=== PATIENT | male | born 1985 | race Two or more races ===

== ENCOUNTER 2017-01-27 21:56 | Emergency (ER) | payer OTHER ==
--- NOTE | ~2017-01-27 | ER ---
PATIENT'S NAME: KEKE [facility] AGE: 31 Y [address] ROOM: [place] [id number] LOCATION: ED ADMIT DATE: 01/27/2017 ER/Outpatient Report DISCHARGE DATE: 01/27/2017 FAMILY PHYSICIAN: PHYSICIAN, NO ATTENDING PHYSICIAN: Tigist Devlin A HISTORY OF PRESENT ILLNESS: A 31-year-old male who presents today with a chief complaint of one day of chest pain. It is in the middle of his chest, it is sharp, it does not radiate anywhere, it does not go to his jaw or back. He does not have any shortness of breath or wheezing, no cough, no fatigue, no pain on inspiration, no fever or chills, no muscle aches. He reports that he has perioral numbness and tingling and he also has bilateral hand tingling and numbness and he feels like his hands are cramping together. He states he has never had anything about this before. He reports his pain is a 6/10, ongoing for a day, denies being anxious. He says he has no stress in his life though. Denies any drug use. PAST MEDICAL HISTORY: None. PAST SURGICAL HISTORY: Some sort of nose surgery and hernia repair. SOCIAL HISTORY: He smokes half-a-pack per day for the last 17 years. Drinks alcohol occasionally. Denies any drug use. MEDICATIONS: None. ALLERGIES: NONE. REVIEW OF SYSTEMS: Reviewed by me and negative with the exception of those discussed in HPI. PHYSICAL EXAMINATION: VITAL SIGNS: He is 5 feet, 6 inches, weighs 72.5 kilos, blood pressure 145/73, heart rate 90, respiratory rate 26, temp is 98.2, and satting 99% on room air. GENERAL: The patient appears very anxious at this time, sort of hyperventilating at 25 breaths per minute, but satting 100% on room air at this time. He is alert and oriented x4. He is able to speak to me appropriately. GCS is 15. PATIENT'S NAME: KEKE [facility] AGE: 31 Y [address] ROOM: [place], [place] [id number] LOCATION: ED ADMIT DATE: 01/27/2017 ER/Outpatient Report DISCHARGE DATE: 01/27/2017 FAMILY PHYSICIAN: PHYSICIAN, NO ATTENDING PHYSICIAN: Tigist Devlin HEENT: Normal ENT. No nasal drainage. No sinus pressure. HEART: Heart rate is regular rate. He is not tachycardic. His blood pressure is mildly elevated at 145/73, but strong pulses. Cap refill less than 2 seconds. LUNGS: He is also mildly tachypneic, but he has no retractions or splinting. He has no accessory muscle use. He has no stridor. No wheezing, rales, or rhonchi. He has normal clear breath sounds, 100% on room air. ABDOMEN: Soft, nontender, nondistended. No guarding or rebound. EXTREMITIES: He moves all extremities without any difficulty. NEUROLOGIC: Alert and oriented x4. Grasp strength bilaterally is strong and equal. Strength bilateral upper extremities 5/5, lower extremities, 5/5. Intact sensation in bilateral upper and lower extremities. Cranial nerves 2 through 12 are intact and able to do [id number] testing. EMERGENCY ROOM COURSE: An EKG was done, which on my read looks like just sinus rhythm. There is no ectopy, ST-elevation, or ST-depression. Some nonspecific ST changes in the lead III and aVF. His AL interval is 110, QRS is 96, QTc is 382. The patient was given 1 mg of Ativan after which he said his symptoms were a lot better, he no longer has hand cramping, hand numbness, no perioral tingling, and his chest pain has almost completely resolved now, it is like a 1/10, he says he barely feels it is there. I did discuss with him not really sure what he says he is not anxious, but he certainly looks very anxious, he is like very fidgety, he denies any drug use though, we will give him a script for Ativan, and we will have him follow up with his primary care doctor within the next week for and he should go see them sooner or come back to the ER if he continues to have chest pain with other concerning symptoms, but given his age, lack of risk factors, I think this is more anxiety than anything else. IMPRESSION: Anxiety, atypical chest pain. MD CHRISTINE BLACKMON/modl /[id number] d: 01/28/17400 t: 01/28/17 1811, OUTPATIENT REPORT
== END 2017-01-27 22:57 | disposition disaster alternative care site (69) ==
LOC: GMED 21:56
DX: R07.89 Other chest pain (principal); F41.9 Anxiety disorder, unspecified; F17.210 Nicotine dependence, cigarettes, uncomplicated